=== PATIENT | female | born 1990 | race Native Hawaiian/Other Pacific Islander ===

== ENCOUNTER 2017-10-13 23:15 | Inpatient (IN) | payer MEDICAID ==
[2017-10-13 23:54] VITALS: BMI 39.0
[2017-10-14] MEDS: Lactated Ringer's 1,000 ML IV SCH ×6 (00:30→12:03)
[2017-10-14 00:39] LABS: SQUAMOUS EPITHIAL 45 /hpf (0-5); URINE BACTERIA OCC (<OCC); URINE BILIRUBIN NEGATIVE (NEGATIVE); URINE BLOOD SMALL (NEGATIVE); URINE CLARITY CLOUDY (Clear); URINE COLOR AMBER (YELLOW); URINE GLUCOSE (UA) NEG (Normal); URINE LEUKOCYTE ESTERASE MOD Leu/uL (Negative); URINE NITRATE NEGATIVE (NEGATIVE); URINE PROTEIN 100 mg/dL (NEGATIVE); URINE UROBILINOGEN 0.2-1.0 mg/dL (0.2-1.0)
[2017-10-14] MEDS ORDERED: Betamethasone Soluspan 30 mg/5mL Inj Susp IM ONE (01:53)
[2017-10-14] MEDS ORDERED: ceFAZolin 2 GM in Sodium Chloride 0.9% 100 ML IVPB ONE (01:59)
[2017-10-14] MEDS ORDERED: Sodium Chloride 0.9% 1,000 ML IV SCH (02:00)
--- NOTE | 2017-10-14 02:09 | OBHP ---
Datetime: 10/13/2017 23:56 IP Adm Impression: , intrauterine ; Active labor IP Admit Plan: Initiate Section protocol; Observation/Evaluation Admit Comment, IP Provider: 27 yo with twin gestation at 32.5 weeks, with MARISA 12/03/17, prese nted to [facility] due to lower abdominal pain x 3 days. Pain is constant, feels like pressure, rated 8/10. She reports good movement, does not feel contractions, denies vaginal bleeding, denies loss of fluid. No recent sexual activity. ROS: denies headaches, dizziness, chest pain, palpitations, shortness of breath, burning with urin ation. Past Obhx: 2 NVD (2008, 2009) at full term. 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 Past MEd hx: denies Family hx: denies, none Past Surg hx: none Social hx: denies tobacco, alcohol, drug use Meds: PNV Allergies: none care: [facility] HIV neg (09/17/17) HbsAg neg (09/17/17) GC/CL neg, RPR NR (09/17/17) Rubella Immune ABO Bpos antibody neg QF gold neg A: 27 yo with twin gestation at 32.5 weeks, with abdominal pain. Jose on monitor. P: Urinalysis 2L LR @ 999ml/hr Reassess after fluids Pt discussed w/ Dr. Child. [email or web address] The patient was seen with the resident I agree with the notes. The patient was examined bedside to perform a fibronectin patient was noted to be fully dilated. Bedside sonogram performed baby A vertex baby B in breech presentation. Informed consent was obtained for primary delivery. I discussed the risks benefits alternatives to surgery. Due to patient being fully dilated unable to t ransfer to level III NICU at this time. I discussed the risks of prematurity. Neonatology notified arie swanson aware of risks and agrees to plan of care Extremities - PN: Abnormal Abdomen - PN: Normal Back - PN: Normal Breast - PN: Not Done Lungs - PN: Normal Heart - PN: Normal Thyroid - PN: Not Done Neurologic - PN: Normal HEENT - PN: Normal General - PN: Normal FHR - Baseline A Provider: 160 Comments, ACOG Physical Exam: Sterile speculum exam patient noted to be fully dilated bulging membra francesca 100% effaced presentation vertex breech Gestation - Est Wks by US: 32.0 EGA AdmitDate IP: 32.6 Vital Signs Provider: Reviewed IP Chief Complaint: Maternal discomfort NICHD Variability Prov Fetus A: Moderate 6-25bpm NICHD Accel Fetus A IP Provider: 15X15 FHR Category Provider Fetus A: Category I NICHD Decel Fetus A IP Provider: None Dilatation, Provider: FD Effacement, Provider: 100 Station, Provider: -2 DTRs - PN: Not Done
[2017-10-14] MEDS ORDERED: ceFAZolin IV 2 gm in Dextrose 2 GM/50 ML BAG IVPB ONE ×2 (02:14→02:30)
[2017-10-14] MEDS ORDERED: Oxytocin 30 UNITS in Sodium Chloride 0.9% 500 ML IV ONE (02:14)
[2017-10-14] MEDS ORDERED: ePHEDrine 50 mg/ml Inj ONE (02:15)
[2017-10-14] MEDS ORDERED: Phenylephrine 10 mg/ml Inj ONE (02:15)
[2017-10-14] MEDS ORDERED: Morphine 1 mg/ml preservative-free Inj(Duramorph) ONE (02:15)
[2017-10-14 02:22] LABS: BASO % 0.3 % (0.0-2.0); EOS # 0.1 K/uL (0.0-0.7); EOS % 0.8 % (0.0-4.0); HEMOGLOBIN 12.7 g/dL (12.0-16.0); LYMPH # 1.3 K/uL (1.0-4.3); MEAN CELL VOLUME 84.1 fl (81.0-99.0); MEAN CORPUSCULAR HEMOGLOBIN 27.2 pg (27.0-31.0); MEAN CORPUSCULAR HGB CONC 32.3 g/dL (33.0-37.0); MEAN PLATELET VOLUME 10.1 fl (7.2-11.7); MONO # 0.8 K/uL (0.0-0.8); MONO % 6.1 % (0.0-10.0); NEUT # 11.1 K/uL (1.8-7.0); NEUT % 82.8 % (50.0-75.0); NRBC % 0.1 % (0.0-0.0); RBC 4.67 Mil/uL (3.80-5.20); RED CELL DISTRIBUTION WIDTH 13.9 % (11.5-14.5); WHITE BLOOD COUNT 13.4 K/uL (4.8-10.8)
[2017-10-14] MEDS ORDERED: DiphenhydrAMINE 50 mg/ml Inj IVP PRN ×2 (03:04→05:53)
[2017-10-14] MEDS ORDERED: Oxycodone/Acetaminophen 5/325 mg Tab PO PRN ×4 (03:24→05:53)
[2017-10-14] MEDS ORDERED: Lactated Ringer's 1,000 ML IV SCH (04:00)
--- NOTE | 2017-10-14 08:12 | OP ---
PROCEDURE DATE: PREOPERATIVE DIAGNOSES: Twin gestation 32 plus weeks, active labor, malpresentation, and vertex breech. POSTOPERATIVE DIAGNOSES: Twin gestation 32 plus weeks, active labor, malpresentation, and vertex breech. OPERATION PERFORMED: Primary low flap transverse section by Pfannenstiel skin incision. SURGEON: Megha Child MD COGNOS CONSULTANT: Dr. Felder. The resident he was instrumental in the care of the patient. He helped create exposure, obtain hemostasis, he was helpful in delivering the infants, creating exposure and closure of the patient. The procedure would not have been possible without his assistance. TYPE OF ANESTHESIA: Spinal. ANESTHESIA ADMINISTERED BY: ESTIMATED BLOOD LOSS: 800 mL. URINE OUTPUT: Cruz catheter put out approximately 100 mL of clear urine. INTRAVENOUS FLUID INTAKE: The patient received approximately 1500 mL of D5 LR intraoperatively. OPERATIVE FINDINGS: Normal uterus, tubes, and ovaries. Baby A, vertex presentation, Apgars were 9 and 9. Baby B, Breech presentation, Apgars 9 and 9. Both male infants. COMMENTS: The patient presented to labor and delivery complaining of abdominal pain. The patient was examined and noted to be fully dilated. After informed consent was obtained, the patient was counseled regarding the risks, benefits and alternatives of the surgery and we also discussed the risks of prematurity. After thorough discussion, the patient agreed to plan of care. DESCRIPTION OF PROCEDURE: The patient was taken to the operating room where she was given spinal anesthesia. The patient was then prepped and draped in the normal sterile fashion. A Pfannenstiel skin incision was then made with a scalpel and carried down to the underlying layer of fascia. The fascia was nicked in the midline. The fascial incision was then extended laterally with curved Melgoza scissors. Superior aspect of the fascial incision was then grasped with Heidi clamps and elevated up, and the rectus muscles were dissected off using both sharp and blunt dissection. Attention was then turned to the inferior aspect of the fascial incision, which in similar fashion was grasped with Heidi clamps, elevated up, and the rectus muscles were dissected off using both sharp and blunt dissection. The rectus muscles were then in the midline. The peritoneum was identified and entered sharply with the Metzenbaum scissors. The peritoneal incision was then extended superiorly and inferiorly with good visualization of the bladder. The bladder blade was then inserted. The vesicouterine peritoneum was identified and entered sharply with the Metzenbaum scissors. The incision was extended laterally and the bladder flap was created digitally. The bladder blade was then reinserted and a low transverse uterine incision was then made with the scalpel. The uterine incision was then extended laterally with the bandage scissors. The 's head was then delivered atraumatically. The nose and mouth were suctioned with DeLee suction trap. The cord was clamped and cut with Chela clamp, and handed off to awaiting pediatricians. The second was then delivered via the Breech presentation. The nose and mouth were then suctioned, the cord was clamped and cut and Heidi clamp was applied. The placenta was then removed manually. The uterus was exteriorized and cleared of all clots and debris. The uterine incision was repaired with 0-Vicryl in a running locked fashion. A second layer of the same suture was used to obtain excellent hemostasis. The abdomen was then copiously irrigated. The irrigant was removed with a suction device. Hemostasis was noted. The uterus was returned to the abdomen. The gutters were cleared of all clots and debris. The peritoneum was closed with 2-0 Vicryl in a running fashion. The muscle was reapproximated with 0 Vicryl in an interrupted fashion. The fascia was closed with 0 Vicryl in a running fashion. The skin was closed with 4-0 on a Yifan needle. All sponge, lap, needle, and instrument counts were correct x2, and the patient was taken to the recovery room in awake and stable condition. Megha Child MD
[2017-10-14 11:57] LABS: BASO % 0.1 % (0.0-2.0); HEMOGLOBIN 11.5 g/dL (12.0-16.0); LYMPH # 0.6 K/uL (1.0-4.3); MEAN CELL VOLUME 82.6 fl (81.0-99.0); MEAN CORPUSCULAR HEMOGLOBIN 27.4 pg (27.0-31.0); MEAN CORPUSCULAR HGB CONC 33.1 g/dL (33.0-37.0); MEAN PLATELET VOLUME 9.9 fl (7.2-11.7); MONO # 0.3 K/uL (0.0-0.8); MONO % 1.6 % (0.0-10.0); NEUT # 19.4 K/uL (1.8-7.0); NEUT % 95.3 % (50.0-75.0); PLATELET COUNT 183 K/uL (130-400); RBC 4.19 Mil/uL (3.80-5.20); RED CELL DISTRIBUTION WIDTH 13.7 % (11.5-14.5); WHITE BLOOD COUNT 20.4 K/uL (4.8-10.8)
[2017-10-14 12:43] LABS: ANISOCYTOSIS SLIGHT; BANDS 4 % (0-2); GIANT PLATELETS PRESENT; LARGE PLATELETS PRESENT; LYMPHOCYTE 3 % (20-50); NEUTROPHIL 93 % (42-75); PLATELET ESTIMATE NORMAL (NORMAL); TOTAL CELLS COUNTED 100
[2017-10-14 13:15] LABS: MONOCYTE 0 % (0-10)
--- NOTE | 2017-10-16 06:35 | OBPPN ---
Datetime: 10/15/2017 06:17 PP Pain Prov: Within normal limits PP Nausea Prov: Present PP Flatus Prov: No PP BM Prov: No PP Nausea Prov comment: vomited once yesterday in am; no vomiting since PP Breasts Prov: Not Done PP Heart Prov: Normal PP Lungs Prov: Normal PP Abdomen/Uterus Prov: Normal PP Lochia Prov: Normal PP Vulva/Perineum Prov: Not Done PP CVA Tenderness Prov: Not Done PP Extremities Prov: Normal PP C/S Incision Prov: Normal PP Impression Prov: Normal progression PP Plan Prov: Continue present management PP Progress Note Prov: 27 yo , s/p on 10/14/17, POD 1. Pt was seen and examined at [facility] this morning; no acute events overnight; reports one episode of vomiting yesterday in am, but s skyler has resolved. Reports mild abdominal pain that is well controlled with medication. She has ambu lated around the room and to the bathroom; is voiding freely. Has not passed gas or had a BM yet. Loc hia less than menses in volume. Pumping breastmilk for infants. Denies fever, chills, chest pain, yashira rtness of breath, nausea, vomiting, pain in calves. Gen: no acute distress, alert CV: S1S2, RRR Resp: normal effort of respiration, clear to auscultation bilaterally Abdomen: BS+, appropriate tenderness to palpation. Uterus is firm and at the level of the umbilicu s. Incision clean, dry, no erythema or exudates, steri strips in place. Ext: no edema, calves nontender A: 27 yo , s/p on 10/14/17, POD 1. Pt stable, pain well controlled. Doing well. P: Continue current post- management. -[email or web address] Pt was seen and discussed with Resident and I agree with the above, Vital Signs Provider PP: Reviewed; Within Normal Limits
[2017-10-16 08:57] LABS: HEMOGLOBIN 10.3 g/dL (12.0-16.0); MEAN CELL VOLUME 83.6 fl (81.0-99.0); MEAN CORPUSCULAR HGB CONC 33.4 g/dL (33.0-37.0); RBC 3.68 Mil/uL (3.80-5.20); WHITE BLOOD COUNT 12.7 K/uL (4.8-10.8)
--- NOTE | 2017-10-16 09:30 | OBPPN ---
Datetime: 10/16/2017 07:41 PP Pain Prov: Within normal limits PP Nausea Prov: Denies PP BM Prov: Yes PP C/S Incision Prov: Normal PP Impression Prov: Normal progression PP Plan Prov: Continue present management PP Progress Note Prov: POD #2 27 yo , s/p on 10/14/17, POD 2. Pt was seen and examined at bedside this morning; n o acute events overnight. Reports mild abdominal pain that is well controlled with medication. She h as ambulated around the room and to the bathroom; is voiding freely. Has passed gas and has had a BM. Lochia less than menses in volume. Pumping breastmilk for infants. Denies fever, chills, chest pain, shortness of breath, nausea, vomiting, pain in calves. Gen: no acute distress, alert CV: S1S2, RRR Resp: normal effort of respiration, clear to auscultation bilaterally Abdomen: BS+, appropriate tenderness to palpation. Uterus is firm and at the level of the umbilicu s. Incision clean, dry, no erythema or exudates, steri strips in place. Ext: no edema, calves nontender A: 27 yo , s/p on 10/14/17, POD 2. Pt stable, pain well controlled. Doing well. P: Continue current post- management. F/U Urinalysis and CBC. Shane Joe, PGY1 [facility]. Pt seen on rounds and agree with note. AMANDA BERRY PP Procedures: None Vital Signs Provider PP: Reviewed; Within Normal Limits
--- NOTE | 2017-10-17 09:38 | OBDCSUM ---
Datetime: 10/17/2017 07:11 Discharged to, Provider: Home Follow up at, Provider: PMD Disch Instr Activity: Normal activity; May be up to bathroom; May be up for meals; May Shower Disch Instr Diet: Regular Discharge Instructions, Provider: Routine instructions given Discharge Diagnosis, Provider: Delivery Discharge Time: 10/17/2017 11:00 Follow up in weeks, Provider: 1 to 2 weeks Disch Referrals: None Contraception discussed, Prov: Yes Disch Activity Restrictions: No lifting; No sexual activity; Nothing in vagina - [place], tampon s, douche Discharge Comment, Provider: DOA: 10/14/2017 EGA: 32.6 weeks Diagnosis: PRisk factors: twin Summary of : L_D summary: DOL: 10/14/2017, baby A at 02:54 am; baby B at 02:55 am. NB: baby A male/baby B male : baby A 9/9; baby B 9/9 Weight: baby A 2210 g/ baby B 2240 g PP summary: No serious complications during PP. Lochia= menses, mild pain, controlled with medications Rubella immune Blood type: B+ CBC pp: 11.5/34.6 Discharge Date: 10/17/2017 at 10 am Discharge Instructions: -encourage -Ibuprofen for pain PRN -Colace for constipation -Ambulate as tolerated -f/u NB visit and PP visit Contraception after Delivery: Undecided
--- NOTE | 2017-10-17 09:38 | OBPPN ---
Datetime: 10/17/2017 07:09 PP Pain Prov: Within normal limits PP Nausea Prov: Denies PP Flatus Prov: Yes PP BM Prov: Yes PP Breasts Prov: Not Done PP Heart Prov: Normal PP Lungs Prov: Normal PP Abdomen/Uterus Prov: Normal PP Lochia Prov: Normal PP Vulva/Perineum Prov: Not Done PP CVA Tenderness Prov: Not Done PP Extremities Prov: Normal PP C/S Incision Prov: Normal PP Progress Prov: Normal PP Impression Prov: Normal progression PP Plan Prov: Discharge PP Progress Note Prov: 27 yo , s/p on 10/14/17, POD 3. Pt was seen and examined at [facility] this morning; no acute events overnight. Reports mild abdominal pain that is well controlled wi th medication. She has ambulated around the room and to the bathroom; is voiding freely, +BM. Lochia less than menses in volume. Pumping breastmilk for infants. Denies fever, chills, chest pain, shortn ess of breath, nausea, vomiting, pain in calves. Gen: no acute distress, alert CV: S1S2, RRR Resp: normal effort of respiration, clear to auscultation bilaterally Abdomen: BS+, appropriate tenderness to palpation. Uterus is firm and at the level of the umbilicu s. Incision clean, dry, no erythema or exudates, steri strips in place. Ext: no edema, calves nontender A: 27 yo , s/p on 10/14/17, Doing well POD 3. Discharge home today. YBecerra PGY 1. Pt was seen and evaluated with the resident and I agree with the above. IP PP Procedures: None Vital Signs Provider PP: Reviewed; Within Normal Limits
[2017-10-17 18:25] VITALS: BP 145/85; PULSE 89; RESP 20; TEMP 98.7; O2SAT 100
== END 2017-10-17 14:10 | disposition home or self-care (01) | DRG 651 ==
LOC: H.EROB2 23:15 → H.L&D 10-14 02:00 → H.OB/GYN 10-14 07:45
PROVIDERS: ADMIT Obstetrics & Gynecology Gynecology; ATTEND Obstetrics & Gynecology Gynecology
PROC: 10D00Z1 Extraction of Products of Conception, Low, Open Approach (ICD-10-PCS; principal; 2017-10-14)
PROC: 4A1HXCZ Monitoring of Products of Conception, Cardiac Rate, External Approach (ICD-10-PCS; 2017-10-14)
DX: O60.14X1 Preterm labor third trimester with preterm delivery third trimester, fetus 1 (principal); O60.14X2 Preterm labor third trimester with preterm delivery third trimester, fetus 2; O32.1XX2 Maternal care for breech presentation, fetus 2; O30.003 Twin pregnancy, unspecified number of placenta and unspecified number of amniotic sacs, third trimester; Z37.2 Twins, both liveborn; Z3A.32 32 weeks gestation of pregnancy

== ENCOUNTER 2018-11-12 16:36 | Emergency (ER) | payer SELFPAY ==
[2018-11-12 16:51] VITALS: BP 159/80; PULSE 96; RESP 16; TEMP 98.1; O2SAT 98
[2018-11-12 16:52] VITALS: BMI 38.7
--- NOTE | 2018-11-12 17:08 | ED PDOC ---
HPI: Back Time Seen by Provider: 11/12/18 17:05 Chief Complaint (Nursing): Back Pain Chief Complaint (Provider): abd pain/back pain History Per: Patient (Approx 36 week gest female G5 LMP 03/2019 no prental care here with lower abd pain/back pain associated with frequent urination here for evaluation. Patient states she tried to see clinic 3 week ago but was not accepted as she was too late in her .) Past Medical History Reviewed: Historical Data, Nursing Documentation, Vital Signs Vital Signs: Last Vital Signs Temp 98.1 F 11/12/18 16:50 Pulse 96 H 11/12/18 16:50 Resp 16 11/12/18 16:50 BP 159/80 H 11/12/18 16:50 Pulse Ox 98 11/12/18 16:51 - Medical History PMH: Denies: Depression, Diabetes, HTN - Family History Family History: States: No Known Family Hx - Immunization History Hx Tetanus Toxoid Vaccination: No Hx Influenza Vaccination: No Hx Pneumococcal Vaccination: No - Home Medications Home Medications: Ambulatory Orders Medication Instructions Recorded Pnv No.95/Ferrous Fum/Folic AC 1 tab PO DAILY 10/14/17 [Prenavite] - Allergies Allergies/Adverse Reactions: Allergies Allergy/AdvReac Type Severity Reaction Status Date / Time No Known Allergies Allergy Verified 06/17/16 00:38 Review of Systems ROS Statement: Except As Marked, All Systems Reviewed And Found Negative Physical Exam - Reviewed Nursing Documentation Reviewed: Yes Vital Signs Reviewed: Yes - Physical Exam Appears: Positive for: Well, Non-toxic, No Acute Distress Head Exam: Positive for: ATRAUMATIC, NORMAL INSPECTION, NORMOCEPHALIC Skin: Positive for: Normal Color, Warm, DRY Eye Exam: Positive for: EOMI, Normal appearance, PERRL ENT: Positive for: Normal ENT Inspection Neck: Positive for: Normal, Painless ROM Cardiovascular/Chest: Positive for: Regular Rate, Rhythm Respiratory: Positive for: CNT, Normal Breath Sounds Gastrointestinal/Abdominal: Positive for: Normal Exam, Soft Back: Positive for: Normal Inspection Extremity: Positive for: Normal ROM Neurological/Psych: Positive for: Awake, Alert, Normal Tone - ECG O2 Sat by Pulse Oximetry: 98 - Progress ED Course And Treament: Charge nurse has spoken to L & D. We will transfer upstairs. Disposition - Clinical Impression Clinical Impression: Abdominal pain affecting - Patient ED Disposition Is Patient to be Admitted: No - Disposition Disposition: Routine/Home Disposition Time: 17:12 Condition: FAIR Instructions: Screenings, Nutrition Before and During , Care
[2018-11-12] MEDS ORDERED: Lactated Ringer's 1,000 ML IV ONE ×2 (17:51→17:52)
[2018-11-12 18:37] LABS: BASO % 0.2 % (0.0-2.0); EOS # 0.1 K/uL (0.0-0.7); EOS % 0.6 % (0.0-4.0); HEMOGLOBIN 11.1 g/dL (12.0-16.0); LYMPH # 1.2 K/uL (1.0-4.3); LYMPH % 10.4 % (20.0-40.0); MEAN CELL VOLUME 77.4 fl (81.0-99.0); MEAN CORPUSCULAR HGB CONC 32.4 g/dL (33.0-37.0); MEAN PLATELET VOLUME 9.5 fl (7.2-11.7); MONO # 0.7 K/uL (0.0-0.8); MONO % 6.3 % (0.0-10.0); NEUT # 9.2 K/uL (1.8-7.0); NEUT % 82.5 % (50.0-75.0); NRBC % 0.1 % (0.0-0.0); RBC 4.44 Mil/uL (3.80-5.20); RED CELL DISTRIBUTION WIDTH 14.2 % (11.5-14.5); WHITE BLOOD COUNT 11.2 K/uL (4.8-10.8)
[2018-11-12 18:39] LABS: SQUAMOUS EPITHIAL 13 /hpf (0-5); URINE BACTERIA RARE (<OCC); URINE BILIRUBIN NEGATIVE (NEGATIVE); URINE BLOOD NEGATIVE (NEGATIVE); URINE CLARITY CLOUDY (Clear); URINE COLOR YELLOW (YELLOW); URINE GLUCOSE (UA) NEG (NEGATIVE); URINE LEUKOCYTE ESTERASE NEG Leu/uL (Negative); URINE PROTEIN 100 mg/dL (NEGATIVE)
--- NOTE | 2018-11-12 19:33 | OBHP ---
Datetime: 11/12/2018 17:37 IP Adm Impression: , intrauterine IP Admit Plan: Observation/Evaluation Admit Comment, IP Provider: 28 yo with IUP at EGA of 35 wk MARISA 12/17/18, received no care due to lack on insurance reports LMP of 03/12/19, presented to [facility] due to LBP and Dysuria. Repor ts onset of B/L LBP on 11/10/18 constant not alleviated, 9/10 in severity, does not radiate do wn legs. Reports dysuria since 11/07/18, denies hematuria. Recently had a cough and cold. Denies contra ctions,LOF or vaginal bleeding. Reports good movements. Denies fever, chills, dizziness, headac hes, blurry vision, N/V/D/C, CP,or SOB. OBGYN: No care, only issue in last was a UTI 2NSVD(2008, 2009) C section for twin gestation @32wks in 2018 Denies hx of stds, reports normal pap smear last year Provider: None PMH: None FMH: None SOCH: Denies smoking, ETOH, or Drugs SURG: C section 2018 MEDS: PNV Allergies:NKDA LABS:Unknown no care VS BP 145/104 PE GEN: NAD HEENT: NCAT RESP: CTA B/L, no wheezes, rales, or rhonchi CV: RRR, S1 S2 normal, no murmurs ABD: Gravid, soft and mild suprapubic tenderness palpation, + BS appreciated Back: mid lumbosacral spinal tenderness to palpation, No CVA tenderness, No SI joint tenderness, S traightleg raise negative B/L EXT: mild edema, calves nontender A/P 28 yo G4P with IUP at EGA of 35 wk MARISA 12/17/18, received no care presented to [facility] due to LBP and dysuria Plan: -Observe in [facility] -2 LR's IVF -Maternal VS monitoring BP 145/104 -FHR monitoring -U/A, Urine Cx -Bedside U/S to assess dating- no care -CBC, type and screen Case reviewed and discussed with Dr Vikram So PGY1 Addendum by Dr. Sue: I have evaluated the patient independently and I agree with the above. Pat levy is a @ 35 wks, confirmed by bedside U/S. Patient's presenting complain was dysuria, denies V B, leaking, +FM, no ctxns. UA was negative for infection. Pt complained of back pain, back inspected, no CVA tenderness, mid line tenderness to palpation, most likely musculoskeletal. Patient has 2 prev ious vaginal deliveries, last delivery of twins via . Otherwise no medical problems, no othe r surgeries except x 1, no allergies, takes no medication. Patient has had no care in the . Today, bedside U/S confirmed EDC by LMP = 12/17/18. Patient was measuring appropriately at 35 wks, BPP = 8/8. Patient's BPs noted to be 140/90 over the p ast 2 hours. UA showed +100 of protein. Patient denies COHEN, blurred vision, scletomatas. FHR = 125 mod abhijeet, +accels, no decels. Pt denies history of CHTN or pre-eclampsia with other . PLT = nml. Patient at this point meets criteria for pre-eclampsia. Patient not going to find care in next two w eeks. Patient was cautioned that is she has COHEN, blurred vision, N/V, BP>160/110, no FM, labor signs t o present to a hospital [facility]. Discussed pre-eclampsia can result in severe maternal and/or mort ality such as seizures, stroke, IUGR or demise. Pt verbalized understanding. Patient scheduled for repeat 11/28 to be done by myself @ 37 wks. Patient verbalized understanding and agreed to present on 11/28 or earlier if any symptoms presented Extremities - PN: Normal Abdomen - PN: Normal Lungs - PN: Normal Heart - PN: Normal HEENT - PN: Normal General - PN: Normal Comments, ACOG Physical Exam: GEN: NAD HEENT: NCAT RESP: CTA B/L, no wheezes, rales, or rhonchi CV: RRR, S1 S2 normal, no murmurs ABD: Gravid, soft and mild suprapubic tenderness palpation, + BS appreciated Back: mid lumbosacral spinal tenderness to palpation, No CVA tenderness, No SI joint tenderness, S traightleg raise negative B/L EXT: mild edema, calves nontender Monitor HR tracing IP Hx Assessment: No Care Vital Signs Provider: Reviewed Vital Signs Provider Details: BP145/104 IP Chief Complaint: Maternal discomfort
--- NOTE | 2018-11-12 19:35 | OBDCSUM ---
Datetime: 11/12/2018 19:25 Discharged to, Provider: Home Follow up at, Provider: DONNY Disch Instr Activity: Normal activity Disch Instr Diet: Regular Discharge Time: 11/12/2018 19:25 Follow up in weeks, Provider: 11/28/2018 Disch Referrals: None Discharge Diagnosis Prov Other: pre-eclampsia, previous , no care
--- NOTE | 2018-11-13 08:31 | US ---
Date of service: 11/12/2018 PROCEDURE: HISTORY: No care COMPARISON: TECHNIQUE: FINDINGS: Single live intrauterine fetus with estimated gestational age of 35 weeks and 3 days based on biometric measurements. Estimated weight of 2725 grams +/-400 8 grams. Posterior fundal placenta. JEROME of 13.26. biophysical profile score of 8/8. IMPRESSION: As above.
== END 2018-11-12 19:30 | disposition home or self-care (01) ==
LOC: H.EROB2 16:36
DX: O26.93 Pregnancy related conditions, unspecified, third trimester (principal); M54.5 Low back pain; R30.0 Dysuria; Z3A.35 35 weeks gestation of pregnancy; O09.33 Supervision of pregnancy with insufficient antenatal care, third trimester
CPT/HCPCS: 76818; 81003; 85025; 86850; 86900; 87086; 99281; J7120

== ENCOUNTER 2018-11-13 07:37 | Inpatient (IN) | payer MEDICAID ==
[2018-11-12 16:52] VITALS: BMI 38.7
[2018-11-13] MEDS ORDERED: Lactated Ringer's 1,000 ML IV SCH (08:15)
[2018-11-13 08:34] LABS: HEMOGLOBIN 11.6 g/dL (12.0-16.0); MEAN CELL VOLUME 76.6 fl (81.0-99.0); MEAN CORPUSCULAR HEMOGLOBIN 25.4 pg (27.0-31.0); MEAN CORPUSCULAR HGB CONC 33.2 g/dL (33.0-37.0); RBC 4.55 Mil/uL (3.80-5.20); RED CELL DISTRIBUTION WIDTH 13.9 % (11.5-14.5); WHITE BLOOD COUNT 10.2 K/uL (4.8-10.8)
[2018-11-13] MEDS: Lactated Ringer's 1,000 ML IV SCH ×4 (08:45→11:15)
[2018-11-13] MEDS ORDERED: Oxytocin 10 Units/ml Inj ONE (09:13)
[2018-11-13] MEDS ORDERED: Oxytocin 10 Units/ml Inj IM ONE (09:15)
[2018-11-13] MEDS ORDERED: Oxytocin 30 UNIT in NS 500 ml 30 UNITS/500 ML BAG IV ONE (09:30)
[2018-11-13] MEDS ORDERED: OXYTOCIN/0.9 % NS 20 UNIT/1,000 ML BAG IV SCH ×2 (09:30→16:06)
[2018-11-13] MEDS ORDERED: Lidocaine 1% PF (5ml) Amp INJ ONE (09:42)
[2018-11-13] MEDS ORDERED: Oxycodone/Acetaminophen 5/325 mg Tab PO PRN ×4 (09:47→16:06)
[2018-11-13] MEDS ORDERED: Benzocaine/Menthol SPRAY TOP PRN (09:47)
[2018-11-13 09:51] VITALS: O2SAT 99
--- NOTE | 2018-11-13 09:54 | OBADHP ---
Datetime: 11/13/2018 09:02 Admit Comment, IP Provider: 28 yo with IUP at EGA of 35+1 wk based on LMP 03/12/18, presents t abigail because of contraction like pain that started at 5 am. Patient was here yesterday because of ba ck pain and dysuria. Found to have one episode of elevated BP yesterday with Protein in the U/A. Pat ent was diagnosed with pre-eclampsia and was scheduled to have a to be performed by Dr. Zafar guerin 11/28. Denies LOF and vaginal bleeding. Reports good movements. Denies fever, chills, dizzine ss, headaches, blurry vision, N/V/D/C, CP,or SOB. ROS: negative except for stated above. OBGYN: No care, only issue in last was a UTI 2NSVD(2008, 2009) C section for twin gestation @32wks in 2018 Denies hx of stds, reports normal pap smear last year Provider: None PMH: None FMH: None SOCH: Denies smoking, ETOH, or Drugs SURG: C section 2018 MEDS: PNV Allergies:NKDA LABS:Unknown no care VS BP 126/60 PE GEN: NAD HEENT: NCAT RESP: CTA B/L, no wheezes, rales, or rhonchi CV: RRR, S1 S2 normal, no murmurs ABD: Gravid, soft and mild suprapubic tenderness palpation, + BS appreciated Back: mid lumbosacral spinal tenderness to palpation, No CVA tenderness, No SI joint tenderness, S traightleg raise negative B/L EXT: mild edema, calves nontender A/P 28 yo G4P with IUP at EGA of 35+1 wk based on LMP 03/12/18, received no care presented to O BED due to contractions. Plan: - Patient found to be 9cm dilated - Reactive NST -Admit to L and D for labor -2L of LR IVF -FHR monitoring - Third trimester labs- HIV, RPR, Hep B Ag - CBC and Type and screen - Anesthesia consult - discussed with patient and consent signed and in chart. - PCN 5 U for GBS prophylaxis given unknown GBS status Case reviewed and discussed with Dr Claire Garcia PGY1 OB Hospitalist Addendum: Pt seen and examined by me. Agree w/ above. 28 yo at 35+4 wks per u/s done yesterday in active labor, 9cm dilated. Pt consented for . (ES) Pelvic Type - PN: Adequate Extremities - PN: Normal Abdomen - PN: Normal Back - PN: Normal Breast - PN: Not Done Lungs - PN: Normal Heart - PN: Normal Thyroid - PN: Normal Neurologic - PN: Normal HEENT - PN: Normal General - PN: Normal FHR - Baseline A Provider: 130 Vital Signs Provider: Reviewed Vital Signs Provider Details: HYPERTENSIVE possibly secondary to contraction pain IP Chief Complaint: Uterine contractions; Maternal discomfort NICHD Variability Prov Fetus A: Moderate 6-25bpm NICHD Accel Fetus A IP Provider: 15X15 FHR Category Provider Fetus A: Category I NICHD Decel Fetus A IP Provider: None Dilatation, Provider: 9cm Genitourinary Exam: Normal DTRs - PN: Normal EGA AdmitDate IP: 35.1 IP Adm Impression: , intrauterine Datetime: 11/13/2018 08:05 IP Admit Plan: Admit to unit; Observation/Evaluation Datetime: 11/12/2018 17:37 Comments, ACOG Physical Exam: GEN: NAD HEENT: NCAT RESP: CTA B/L, no wheezes, rales, or rhonchi CV: RRR, S1 S2 normal, no murmurs ABD: Gravid, soft and mild suprapubic tenderness palpation, + BS appreciated Back: mid lumbosacral spinal tenderness to palpation, No CVA tenderness, No SI joint tenderness, S traightleg raise negative B/L EXT: mild edema, calves nontender Monitor HR tracing IP Hx Assessment: No Care
--- NOTE | 2018-11-13 10:02 | OBDS ---
MATERNAL INFORMATION Provider Comments: Pt progressed to complete and pushed to deliver a viable female infant through th in meconium at 0908. Apgars 9 and 9. Wt. 9.29, 4165 gms. Infant placed on mother's abdomen. Cord blood claming was delayed. Cord doubly clamped and FOB cut the cord. Cord blood was collected. Shira centa delivered spontaneously intact w/ a 3vc at 0929. Perineum and vagina injected w/ 1% lidocaine. Second degree tear reapaired w/ 2-0 Rapide. Right periurethral abrasion ws hemostatic. Pt and bab y tolerated well. EBL 350mL LABOR SUMMARY EDC: 12/17/2018 00:00 No. Babies in Womb: 1
[2018-11-13 10:43] LABS: ALBUMIN 3.7 g/dL (3.5-5.0); ALT/SGPT 19 U/L (9-52); AST/SGOT 18 U/L (14-36); BLOOD UREA NITROGEN 10 mg/dl (7-17); CALCIUM 9.2 mg/dL (8.4-10.2); GFR NON-AFRICAN AMERICAN > 60; URIC ACID 5.6 mg/Dl (2.2-7.5)
[2018-11-13 15:32] LABS: BARBITURATES, UR NEGATIVE (NEGATIVE); BENZODIAZEPINES, UR NEGATIVE (NEGATIVE); OPIATES, UR NEGATIVE (NEGATIVE); PHENCYCLIDINE, UR NEGATIVE (NEGATIVE)
[2018-11-13] MEDS: Benzocaine/Menthol SPRAY TOP PRN (16:39)
[2018-11-14 05:50] LABS: BASO % 0.4 % (0.0-2.0); EOS # 0.1 K/uL (0.0-0.7); EOS % 0.6 % (0.0-4.0); LYMPH # 1.8 K/uL (1.0-4.3); LYMPH % 13.4 % (20.0-40.0); MEAN CELL VOLUME 77.5 fl (81.0-99.0); MEAN CORPUSCULAR HEMOGLOBIN 25.2 pg (27.0-31.0); MEAN CORPUSCULAR HGB CONC 32.6 g/dL (33.0-37.0); MEAN PLATELET VOLUME 9.1 fl (7.2-11.7); MONO # 0.9 K/uL (0.0-0.8); MONO % 7.2 % (0.0-10.0); NEUT # 10.3 K/uL (1.8-7.0); NEUT % 78.4 % (50.0-75.0); NRBC % 0.1 % (0.0-0.0); RBC 3.49 Mil/uL (3.80-5.20); RED CELL DISTRIBUTION WIDTH 14.1 % (11.5-14.5); WHITE BLOOD COUNT 13.1 K/uL (4.8-10.8)
[2018-11-14 05:57] LABS: HEMOGLOBIN 8.8 g/dL (12.0-16.0)
[2018-11-14] MEDS: Multivitamin With Minerals Tab PO SCH (08:54)
[2018-11-14] MEDS ORDERED: Multivitamin With Minerals Tab PO SCH (09:00)
[2018-11-14] MEDS ORDERED: Influenza Vaccine 60 mcg/0.5 mL SYR (4YR UP) IM ONE (10:00)
--- NOTE | 2018-11-14 10:12 | OBPPN ---
Datetime: 11/14/2018 06:47 PP Pain Prov: Within normal limits PP Nausea Prov: Denies PP Flatus Prov: Yes PP BM Prov: No PP Heart Prov: Normal PP Lungs Prov: Normal PP Abdomen/Uterus Prov: Normal PP Lochia Prov: Normal PP Extremities Prov: Normal PP C/S Incision Prov: Not Applicable PP Progress Prov: Normal PP Comments Phys Exam Prov: GEN: Lying in bed NAD HEENT: NCAT CARD: RRR + S1S2 RESP: CTA, no wheezing, rales or rhonchi GI: + BS, no tenderness to palpation, Fundus firm below umbilicus EXT: No edema, no calf tenderness PP Impression Prov: Normal progression PP Plan Prov: Continue present management PP Progress Note Prov: Pt is an 28 yo s/p on 11/13/18, PPD1. Pt was seen and examined a t bedside this AM. No overnight events. Pain is minimal. Ambulating and tolerating PO diet without di fficulty. Breast feeding. Lochia like menses. +Flatus/- BM. Denies dizziness, headahce, blurry vision ,chest pain, SOB, fever, chills, diarrhea, nausea, vomiting or dysuria. O: VS: Stable overnight GEN: NAD Cardio: S1S2, no murmurs Lungs: clear breath sounds b/l, no wheezing Abdomen: BS+, appropriate tenderness to palpation. Uterus is firm and at the level of the umbilic us. EXT: No edema, calves non-tender H/H: aCBC: 11.6/34.8 pCBC:8.8/27.1 Assessment/Plan: 28 yo s/p on 11/13/18, PPD1. Pt remains afebrile, tolerating pain. -Regular diet -Anticipate discharge, 11/15/18 -Continue with current management -Encourage and ambulating -Colace 100mg BID -Ibuprofen 600mg q6 for pain, Percocet 3/325 moderate to severe pain Case reviewed and discussed with attending Marilou So, PGY [address] Sue: I have evaluated the patient independently and I agree with the above IP PP Procedures: None Vital Signs Provider PP: Reviewed; Within Normal Limits
[2018-11-14] MEDS: Benzocaine/Menthol SPRAY TOP PRN (20:38)
[2018-11-15] MEDS ORDERED: Lansinoh for Breast Feeding Mothers TP ONE (06:07)
[2018-11-15] MEDS: Multivitamin With Minerals Tab PO SCH (08:26)
[2018-11-15] MEDS: Benzocaine/Menthol SPRAY TOP PRN (08:27)
[2018-11-15 18:01] VITALS: BP 127/88; PULSE 82; RESP 20; TEMP 97.8
== END 2018-11-15 12:20 | disposition home or self-care (01) | DRG 560 ==
LOC: H.EROB2 07:37 → H.L&D 09:00 → H.OB/GYN 15:33
PROVIDERS: ADMIT Obstetrics & Gynecology; ATTEND Obstetrics & Gynecology
PROC: 10E0XZZ Delivery of Products of Conception, External Approach (ICD-10-PCS; principal; 2018-11-13)
PROC: 0KQM0ZZ Repair Perineum Muscle, Open Approach (ICD-10-PCS; 2018-11-13)
PROC: 4A1HXCZ Monitoring of Products of Conception, Cardiac Rate, External Approach (ICD-10-PCS; 2018-11-13)
DX: O77.0 Labor and delivery complicated by meconium in amniotic fluid (principal); O70.1 Second degree perineal laceration during delivery; Z37.0 Single live birth; Z3A.38 38 weeks gestation of pregnancy